=== PATIENT | female | born 1990 | race Caucasian/White ===

== ENCOUNTER 2017-10-22 11:45 | Emergency (ER) | payer OTHER ==
[~2017-10-22] VITALS: Ht 167.6 cm; Wt 95.2 kg
[~2017-10-22 11:45] MED LIST: BIRTH CONTROLL; Motrin PO; Percocet 5/325,Endoc PO
[2017-10-22 12:41] LABS: HEMATOCRIT 41.8 % (36.0-46.0); HEMOGLOBIN 14.3 G/DL (11.9-15.5); MCH 29.5 PG (29.0-34.0); MCHC 34.2 G/DL (30.0-36.0); MCV 86.2 FL (83-99); PLATELET COUNT 264 K/uL (156-360); RBC DIS.WIDTH-CV 11.9 % (11.8-14.6); RBC DIS.WIDTH-SD 37.7 % (39-53); RED BLOOD COUNT 4.85 M/uL (3.80-5.20); WHITE BLOOD COUNT 8.5 K/uL (4.1-10.2)
[2017-10-22 12:53] LABS: CHLORIDE 105 mEq/L (99-109); POTASSIUM 4.4 mEq/L (3.7-5.4); SODIUM 139 mEq/L (136-147)
[2017-10-22 12:54] LABS: GLUCOSE 92 mg/dL (70-99)
[2017-10-22 12:58] LABS: CREATININE 0.7 mg/dL (0.6-1.3); GFR ESTIMATE (CALCULATED) > 59 mL/min/
[2017-10-22 12:59] LABS: UREA NITROGEN (BUN) 18 mg/dL (9-23)
[2017-10-22 13:04] LABS: TROP-I INTERPRETATION NEGATIVE; TROPONIN-I < 0.01 ng/mL (0.0-0.30)
[2017-10-22] MEDS ORDERED: MOTRIN600 MG PO (14:54)
[2017-10-22 15:04] VITALS: BP 125/88
== END 2017-10-22 15:05 | disposition home or self-care (01) ==
LOC: EME 11:45
DX: R07.89 Other chest pain (principal); Z87.891 Personal history of nicotine dependence
CPT/HCPCS: 71046; 80048; 84484; 85027; 93005; 99281; 99284

== ENCOUNTER 2017-12-03 18:27 | Emergency (ER) | payer OTHER ==
[~2017-12-03] VITALS: Ht 167.6 cm; Wt 96.5 kg
[~2017-12-03 18:27] MED LIST changes: +MOTRIN600 MG PO
[2017-12-03 19:29] LABS: HEMOGLOBIN 14.4 G/DL (11.9-15.5); MCHC 35.1 G/DL (30.0-36.0); MCV 85.4 FL (83-99); PLATELET COUNT 265 K/uL (156-360); RBC DIS.WIDTH-CV 11.7 % (11.8-14.6); RBC DIS.WIDTH-SD 36.3 % (39-53); WHITE BLOOD COUNT 7.9 K/uL (4.1-10.2)
[2017-12-03 19:51] LABS: CHLORIDE 108 MEQ/L (99-109); POTASSIUM 4.1 MEQ/L (3.7-5.4); SODIUM 141 MEQ/L (136-147)
[2017-12-03 19:56] LABS: QUANTITATIVE HCG < 4.0 MIU/ML
[2017-12-03 19:57] LABS: CREATININE 0.7 MG/DL (0.6-1.3); GFR ESTIMATE (CALCULATED) > 59 mL/min/; GLUCOSE 94 mg/dL (70-99); UREA NITROGEN (BUN) 18 mg/dL (9-23)
[2017-12-03] MEDS ORDERED: FLEXERIL10 MG PO (21:07)
[2017-12-03] MEDS ORDERED: ULTRAM50 MG PO (21:07)
[2017-12-03 21:43] VITALS: BP 122/80
== END 2017-12-03 22:09 | disposition home or self-care (01) ==
LOC: EME 18:27
PROVIDERS: Emergency Medicine
DX: M54.5 Low back pain (principal); G89.29 Other chronic pain; Z79.891 Long term (current) use of opiate analgesic; Z87.891 Personal history of nicotine dependence
CPT/HCPCS: 80048; 84702; 85027; 99281; 99285